=== PATIENT | female | born 1955 | race Caucasian/White ===

== ENCOUNTER → 2019-01-04 | Outpatient (CLI) | payer OTHER ==
[~2019-01-04] MED LIST: BACTRIM DS TAB1 EACH; CLEOCIN HCL300 MG PO; TRAMADOL 50 MG50 MG; XANAX 0.25 MG0.25 MG PO; ZOFRAN8 MG
== END ==
LOC: M.LAB 03:28
DX: E78.6 Lipoprotein deficiency (principal)

== ENCOUNTER → 2019-07-06 | Outpatient (CLI) | payer MEDICARE | LOC: M.LAB 04:00 | DX: E87.6 Hypokalemia (principal) ==

== ENCOUNTER → 2019-12-13 | Outpatient (CLI) | payer MEDICARE | LOC: M.RAD 13:50 | PROVIDERS: ATTEND Family Medicine | DX: Z12.31 Encounter for screening mammogram for malignant neoplasm of breast (principal) ==

== ENCOUNTER → 2020-01-05 | Outpatient (CLI) | payer MEDICARE | LOC: M.LAB 16:51 | PROVIDERS: ATTEND Internal Medicine Gastroenterology | DX: Z01.812 Encounter for preprocedural laboratory examination (principal); Z11.59 Encounter for screening for other viral diseases; Z80.0 Family history of malignant neoplasm of digestive organs ==

== ENCOUNTER → 2020-01-10 | Outpatient (CLI) | payer MEDICARE | LOC: M.LAB 03:22 | PROVIDERS: ATTEND Anesthesiology | DX: E87.6 Hypokalemia (principal) ==

== ENCOUNTER → 2020-01-17 | Outpatient (CLI) | payer MEDICARE | LOC: M.RAD 13:23 | PROVIDERS: ATTEND Family Medicine | DX: Z13.820 Encounter for screening for osteoporosis (principal); M85.88 Other specified disorders of bone density and structure, other site ==

== ENCOUNTER 2020-05-14 17:36 | Emergency (ER) | payer MEDICARE ==
[~2020-05-14] VITALS: Ht 152.4 cm; Wt 61.7 kg
[2020-05-14 18:11] VITALS: BP 123/76
== END 2020-05-14 18:12 | disposition home or self-care (01) ==
LOC: M.ERS 17:36
DX: R60.0 Localized edema (principal); G89.29 Other chronic pain; M79.605 Pain in left leg; I10 Essential (primary) hypertension; Z88.5 Allergy status to narcotic agent; Z86.14 Personal history of Methicillin resistant Staphylococcus aureus infection

== ENCOUNTER → 2021-01-31 | Outpatient (CLI) | payer OTHER | LOC: M.RAD 01-21 13:20 | PROVIDERS: ATTEND Family Medicine | DX: Z12.31 Encounter for screening mammogram for malignant neoplasm of breast (principal); N64.89 Other specified disorders of breast ==